=== PATIENT | female | born 1995 | race African-American/Black ===

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

== ENCOUNTER 2019-08-17 15:51 | Emergency (ER) | payer MEDICAID ==
[~2019-08-17] VITALS: Ht 154.9 cm; Wt 58.5 kg
[~2019-08-17 15:51] MED LIST changes: +DAILY VITE1 EACH ORAL; +TYLENOL EXTRA500 MG ORAL
--- NOTE | 2019-08-17 16:05 | NUR ---
ED Nurse Note: Patient walked in to ER c/o sore throat x 2 days. AAO x4, VSS at this time.
[2019-08-17 16:08] VITALS: BP 117/62
--- NOTE | 2019-08-17 16:28 | Emergency Room Report ---
History of Present Illness General Chief Complaint: Sore Throat Source: Patient Present Illness HPI 24-year-old female presents to the emergency department complaining of 6 out of 10 severity sore throat pain and associated tonsillar swelling and some erythema x2 days. Patient denies fevers, chills, cough, ill contacts, nasal congestion or rhinorrhea. Patient denies swollen tender lymph nodes. She denies being exposed any children. Patient denies recent travel. She reports pain is exacerbated upon swallowing she denies any relieving factors. Patient states she has not taken any medications for her symptoms. Patient reports she is up-to-date with vaccinations. No other aggravating or relieving factors at this time. Allergies: Coded Allergies: No Known Allergies (Unverified , 12/05/12) Patient History Past Medical History: see triage record Past Surgical History: none Pertinent Family History: none Last Menstrual Period: 08/04/19 Now: No Reviewed Nursing Documentation: PMH: Agreed; PSxH: Agreed Nursing Documentation-PMH Past Medical History: No History, Except For Review of Systems All Other Systems: negative except mentioned in HPI Physical Exam Vital Signs Date Time Temp Pulse Resp B/P (MAP) Pulse Ox O2 Delivery O2 Flow Rate FiO2 08/17/19 15:56 97.9 100 17 117/62 (80) 98 Room Air Sp02 EP Interpretation: reviewed, normal General Appearance: no apparent distress, alert, GCS 15, non-toxic Head: normocephalic, atraumatic Eyes: bilateral eye normal inspection, bilateral eye PERRL ENT: hearing grossly normal, normal voice, TMs + canals normal, uvula midline, moist mucus membranes, tonsillar swelling, pharyngeal erythema, other - no exudates Neck: full range of motion, no meningismus, no bony tend Respiratory: lungs clear, normal breath sounds, speaking full sentences Musculoskeletal: normal range of motion, gait/station normal, non-tender Neurologic: alert, motor strength/tone normal, oriented x3, sensory intact, responsive, speech normal Psychiatric: judgement/insight normal Skin: no rash, normal color, normal inspection Lymphatic: no adenopathy Medical Decision Making PA Attestation Dr. Bullock is my supervising Physician whom patient management has been discussed with. Diagnostic Impression: Primary Impression: pharyngitis ER Course 24-year-old female presents to the emergency department complaining of 6 out of 10 severity sore throat pain and associated tonsillar swelling and some erythema x2 days. Patient denies fevers, chills, cough, ill contacts, nasal congestion or rhinorrhea. Patient denies swollen tender lymph nodes. She denies being exposed any children. Patient denies recent travel. She reports pain is exacerbated upon swallowing she denies any relieving factors. Patient states she has not taken any medications for her symptoms. Patient reports she is up-to-date with vaccinations. No other aggravating or relieving factors at this time. Ddx considered but are not limited to: pharyngitis, strep, DATA CONTROL ASSISTANT, ludwigs angina, URI Vital signs: are WNL, pt. is afebrile H&PE are most consistent with: pharyngitis most likely viral in etiology. Patient does not demonstrate any obvious signs of strep throat and she does not meet [facility] criteria. ORDERS: None required at this time as the diagnosis is clinical ED INTERVENTIONS: none required at this time. DISCHARGE: At this time pt. is stable for d/c to home. Will provide printed patient care instructions, and any necessary prescriptions. Care plan and follow up instructions have been discussed with the patient prior to discharge. Last Vital Signs Date Time Temp Pulse Resp B/P (MAP) Pulse Ox O2 Delivery O2 Flow Rate FiO2 08/17/19 16:08 97.9 17 117/62 98 Room Air 08/17/19 15:56 100 Disposition: HOME, SELF-CARE Condition: Stable Referrals: NON PHYSICIAN (PCP) Patient Instructions: Sore Throat Additional Instructions: Take medications as directed. Follow up with a Primary Care Provider in 3-5 days, even if your symptoms have resolved. Return sooner to ED if new symptoms occur, or current symptoms become worse. - Please note that this Emergency Department Report was dictated using [employer] information assistant technology software, occasionally this can lead to erroneous entry secondary to interpretation by the dictation equipment. Barbie Stephens Aug 17, 2019 16:28
[2019-08-17] MEDS ORDERED: IBUPROFEN600 MG ORAL (16:33)
[2019-08-17] MEDS ORDERED: LIDOCAINE VISC100 ML ORAL (16:33)
[2019-08-17 16:44] VITALS: BP 117/62
--- NOTE | 2019-08-17 16:46 | NUR ---
ED Nurse Note: Pt cleared by health care Provider for discharge. DC instructions/prescription was given and explained to pt and verbalized understanding of teachings. All medical deviecs such as ID band removed. Pt is AAO x4, ambulatory and left with all personal belongings.
== END 2019-08-17 16:48 | disposition home or self-care (01) ==
LOC: EMR 16:08
DX: J02.9 Acute pharyngitis, unspecified (principal)
CPT/HCPCS: J8540; Z7502; 99282

== ENCOUNTER 2019-11-23 22:01 | Emergency (ER) | payer MEDICAID ==
[~2019-11-23] VITALS: Ht 154.9 cm; Wt 59.0 kg
[~2019-11-23 22:01] MED LIST changes: +LIDOCAINE VISC100 ML ORAL
[2019-11-23 22:10] VITALS: BP 116/70
--- NOTE | 2019-11-23 22:10 | NUR ---
ED Nurse Note: Pt walked into ED for c/o vaginal bleeding. Pt states she took a home test that was positive. Pt believes she is 6-8 weeks approximately at this time. Pt notes bleeding started about 2 weeks ago but has become more heavy the last two days. Pt is saturating a pad in 1-2 hours. Pt is aaox4, no cough, sob or fever.
--- NOTE | 2019-11-23 22:28 | Emergency Room Report ---
History of Present Illness General Chief Complaint: Female Urogenital Problems Source: Patient Present Illness HPI This a 24-year-old female who is 1 para 0, approximately 6 to 8 weeks by date. She presents with chief complaint of vaginal bleeding. She was spotting about 2 weeks ago. She had a home test was positive. Her last test was few days ago was also positive. The last 2 days she has been having heavy bleeding and passing clots. She felt like it is a heavy menstruation. She had cramping initially but none now. No fever chills but no nausea no vomiting. No urinary complaint. Nothing made it better. Nothing made it worse. Allergies: Coded Allergies: No Known Allergies (Unverified , 12/05/12) COVID-19 Screening Contact w/high risk pt: No Recent Travel to affected area: No Experienced COVID-19 symptoms?: No COVID-19 Testing performed SHEET TESTER: No Patient History Past Medical History: see triage record, old chart reviewed Past Surgical History: none Pertinent Family History: none Social History: Denies: smoking Last Menstrual Period: unk Now: No : 1 Para: 0 Immunizations: other Reviewed Nursing Documentation: PMH: Agreed; PSxH: Agreed Review of Systems Eye: Denies: eye pain, blurred vision ENT: Denies: ear pain, nose congestion, throat swelling Respiratory: Denies: cough, shortness of breath Cardiovascular: Denies: chest pain, palpitations Gastrointestinal: Denies: abdominal pain, diarrhea, nausea, vomiting Genitourinary: Reports: vag bleed/dc Musculoskeletal: Denies: back pain, joint pain Skin: Denies: rash Neurological: Denies: headache, numbness Endocrine: Denies: increased thirst, increased urine Hematologic/Lymphatic: Denies: easy bruising All Other Systems: negative except mentioned in HPI Physical Exam Vital Signs Date Time Temp Pulse Resp B/P (MAP) Pulse Ox O2 Delivery O2 Flow Rate FiO2 11/23/19 22:07 97.9 96 20 116/70 (85) 98 Room Air Vitals normal Sp02 EP Interpretation: reviewed, normal General Appearance: well appearing, no apparent distress, alert Head: normocephalic, atraumatic Eyes: bilateral eye PERRL, bilateral eye EOMI ENT: hearing grossly normal, normal pharynx Neck: full range of motion, supple, no meningismus Respiratory: chest non-tender, lungs clear, normal breath sounds Cardiovascular #1: regular rate, rhythm, no murmur Gastrointestinal: normal bowel sounds, non tender, no mass, no organomegaly, no bruit, non-distended Musculoskeletal: back normal, normal range of motion, gait/station normal Psychiatric: mood/affect normal Medical Decision Making Diagnostic Impression: Primary Impression: Threatened Additional Impression: UTI (urinary tract infection) Qualified Codes: N30.00 - Acute cystitis without hematuria ER Course Presents with vaginal bleeding. This is most likely a spontaneous . She is a positive. She has no pain right now. Will discharge home with follow- up in 2 days for recheck on hCG level. My bedside ultrasound showed a thickened endometrium but no obvious IUP. This is a transabdominal ultrasound. There is no free fluid. Last Vital Signs Date Time Temp Pulse Resp B/P (MAP) Pulse Ox O2 Delivery O2 Flow Rate FiO2 11/23/19 22:07 97.9 96 20 116/70 (85) 98 Room Air Status: improved Disposition: HOME, SELF-CARE Condition: Stable Scripts Nitrofurantoin Monohyd/M-Cryst (Nitrofurantoin [place]-Mcr 100 mg) 100 Mg Capsule 100 MG ORAL Q12H, #14 CAP Prov: Dejon Jaime MD 11/23/19 Additional Instructions: Follow-up in 2 to 3 days for recheck on level. You can follow-up with your doctor or come back here. Return sooner if having pain or passing out. Dejon Jaime MD November 23, 2019 22:28
[2019-11-23 23:09] LABS: APPEARANCE,URINE CLOUDY; BILIRUBIN, URINE NEGATIVE (NEGATIVE); GLUCOSE, URINE (UA) NEGATIVE (NEGATIVE); KETONES,URINE 1+ (NEGATIVE); LEUKOCYTE ESTERASE ,URINE 2+ (NEGATIVE); NITRITE,URINE NEGATIVE (NEGATIVE); PH,URINE 7 (4.5-8.0); PROTEIN,URINE 2+ (NEGATIVE); UROBILINOGEN,URINE 4 MG/DL (0.0-1.0)
[2019-11-23 23:22] LABS: COLOR,URINE RED
[2019-11-23] MEDS ORDERED: MACROBID100 MG ORAL (23:55)
[2019-11-24 00:05] VITALS: BP 112/85
--- NOTE | 2019-11-24 00:05 | NUR ---
ER DISCHARGE NOTE: Patient is cleared to be discharged per ERMD, pt is aox4, on room air, with stable vital signs. pt was given dc and prescription instructions, pt was able to verbalize understanding, pt id band removed. pt is able to ambulate with steady gait. pt took all belongings.
== END 2019-11-24 00:05 | disposition home or self-care (01) ==
LOC: EMR 22:25
DX: O20.0 Threatened abortion (principal); Z3A.00 Weeks of gestation of pregnancy not specified; N30.00 Acute cystitis without hematuria
CPT/HCPCS: 36415; 81003; 84702; 86900; 86901; Z7502; 99283